=== PATIENT | female | born 1960 | race Caucasian/White ===

== ENCOUNTER 2018-01-20 12:16 | Outpatient (CLI) | payer OTHER ==
[~2018-01-20 12:16] MED LIST: SYNTHROID50 MCG
== END 2018-01-20 12:36 | disposition home or self-care (01) ==
LOC: LAB 12:16
DX: D47.2 Monoclonal gammopathy (principal); D75.89 Other specified diseases of blood and blood-forming organs; E03.8 Other specified hypothyroidism; E55.9 Vitamin D deficiency, unspecified; D50.8 Other iron deficiency anemias; D51.8 Other vitamin B12 deficiency anemias; I10 Essential (primary) hypertension; D51.1 Vitamin B12 deficiency anemia due to selective vitamin B12 malabsorption with proteinuria; D51.0 Vitamin B12 deficiency anemia due to intrinsic factor deficiency; E06.3 Autoimmune thyroiditis; C90.00 Multiple myeloma not having achieved remission; M06.80 Other specified rheumatoid arthritis, unspecified site